=== PATIENT | male | born 1960 | race Caucasian/White ===

== ENCOUNTER → 2023-04-09 07:44 | Outpatient (REF) | payer BC, SELFPAY | LOC: HWRAD 07:44 | PROVIDERS: ATTENDING PHYSICIAN Radiology Diagnostic Radiology; FAMILY PHYSICIAN Family Medicine | DX: I87.1 Compression of vein (principal) | CPT/HCPCS: 74178; Q9967 ==

== ENCOUNTER → 2024-03-24 07:10 | Outpatient (REF) | payer SELFPAY | LOC: RAD 07:10 | PROVIDERS: ATTENDING PHYSICIAN Family Medicine | DX: R74.01 Elevation of levels of liver transaminase levels (principal) | CPT/HCPCS: 70450; 72125 ==

== ENCOUNTER → 2024-03-24 07:39 | Outpatient (REF) | payer OTHER, MEDICARE, SELFPAY | LOC: RAD 07:39 | PROVIDERS: ATTENDING PHYSICIAN Family Medicine; FAMILY PHYSICIAN Family Medicine | DX: R74.01 Elevation of levels of liver transaminase levels (principal) | CPT/HCPCS: 76700 ==

== ENCOUNTER 2024-10-23 04:10 | Emergency (ER) | payer MEDICARE, OTHER, SELFPAY ==
[2024-10-23 04:15] VITALS: BP 125/88
[2024-10-23 05:01] VITALS: BP 135/89
[2024-10-23 05:19] VITALS: BMI 23.3
[2024-10-23 05:19] LABS: Hematocrit 46.3 % (39.0-52.0); Hemoglobin 16.1 g/dL (13.0-18.0); Mean Corp Hgb Conc. 34.8 g/dL (33.0-37.0); Mean Corpuscular Volume 89.2 fL (80.0-94.0); Nucleated Red Blood Cells % 0 % (-); Platelet Count 303 10^3/uL (130-400); Red Cell Dist. Width 13.7 % (11.5-14.5)
[2024-10-23 05:40] LABS: ALT (SGPT) 33 U/L (0-50); AST (SGOT) 32 U/L (17-59); Albumin 4.8 g/dl (3.5-5.0); Alkaline Phosphatase 56 U/L (38-126); Blood Urea Nitrogen 25 mg/dl (9-20); Calcium 9.6 mg/dl (8.4-10.2); Carbon Dioxide 31 mmol/L (22-30); Chloride 102 mmol/L (98-107); Glucose 115 mg/dl (70-99); Potassium 4.2 mmol/L (3.5-5.1); Sodium 139 mmol/L (135-145); Total Protein 7.1 g/dl (6.3-8.2); eGFR > 60.00
[2024-10-23 05:51] LABS: Troponin I < 0.012 ng/ml
[2024-10-23 06:00] VITALS: BP 128/85
--- NOTE | 2024-10-23 06:55 | ED.GENMED ---
History of Present Illness
<Dustin Paulino MD, Resident - Last Filed: 10/23/24 08:47>
General
Chief Complaint: Chest Pain
Source: patient
Time Seen by Provider: 10/23/24 06:16
History of Present Illness
History of Present Illness:
Mr. Grant is a 64-year-old male with past medical history of spontaneous pneumothorax in 2021 secondary to COVID, depression, right leg DVT, and prostatic hypertrophy who presents with 3 to 4 hours of chest 'spasms.' He states that he woke up
around 3 AM and had trouble sleeping, so he took a melatonin with water that he feels contributed to the onset of his symptoms. He describes his pain as a coming and going spasm that starts in his sternum and radiates to the left upper chest and
shoulder, now a little bit around his neck. He denies shortness of breath, palpitations, nausea/vomiting, dizziness, recent infections, and travel. He does endorse a history of 'GI issues' for which he occasionally takes antiacid. He has also
seen a medical data analyst here in the past to rule out cardiac causes. He states that he has a bad habit of eating and laying down, and was doing this last night with a bag of popcorn prior to falling asleep.
Past History
<Dustin Paulino MD, Resident - Last Filed: 10/23/24 08:47>
Past History
ED Past Medical History: Other (Is treated H. pylori, prostatic hypertrophy, prostatis, spontaneous pneumothorax in 2021 secondary to COVID)
ED Past Surgical History: Orthopedic and Other (History of parathyroid surgery, and right knee surgery)
Social History
Tobacco: Non-smoker
Alcohol: None
Drug: None
Personal:
Living: with family
Employment: Employed
Review of Systems
<Dustin Paulino MD, Resident - Last Filed: 10/23/24 08:47>
Review of Systems
Allergies reviewed?: No
Constitutional: Reports no symptoms
Cardiac: Reports chest pain (Starts in the sternum and radiates to the left shoulder)
Phy Exam
<Dustin Paulino MD, Resident - Last Filed: 10/23/24 08:47>
General Physical Exam
General Presentation: well appearing and mild distress (Appears anxious)
General age: appears stated age
General Skin: warm and dry
General Habitus: normal
General Mental: alert
General Hydration: appears well hydrated
ENT Exam
ENT Exam: EOMI
Pulmonary Exam
Pulmonary Exam: lungs clear, no respiratory distress and chest non tender
Gastrointestinal Exam
Gastrointestinal Exam: normal bowel sounds, non tender, soft and non distended
Skin Exam
Skin Exam: normal color
Psychiatric Exam
Psychiatric Exam: anxious
Scores
<Dustin Paulino MD, Resident - Last Filed: 10/23/24 08:47>
Heart Score for Chest Pain Patients
STEMI patient?: No
History: Slightly or Non-Suspicious
ECG: Normal
Age: >/= 65 years
Risk Factors: 1 or 2 Risk Factors
Troponin: >1 - <3 x Normal Limit
Heart Score for Chest Pain Patients: 4
Heart Score Risk: 20.3% MACE over next 6 weeks
<Jerry Kwong, DO - Last Filed: 10/23/24 13:49>
Heart Score for Chest Pain Patients
Heart Score for Chest Pain Patients: 4
Heart Score Risk: 20.3% MACE over next 6 weeks
Course
<Dustin Paulino MD, Resident - Last Filed: 10/23/24 08:47>
Orders/Labs/Results
Orders:
Orders
10/23/24 04:10
Electrocardiogram (*1) Urgent
Reason for Study: Chest Pain
EKG- Treatment ONCE
10/23/24 05:00
Cardiac Monitoring- Treatment ONCE
IV Insert/Care/Rem.- Treatment PRN
CR Chest - 2 Views Urgent
Comment:
Reason For Exam: respiratory distress
O2 Therapy [RESP] Urgent
Titrate/Wean O2 to maintain O2 sat greater than (%): 93
Special Instructions: TO MAINTAIN CONTINUOUS O2 SATS >/= 93%
Pulse Ox/cont/shift [RESP] Urgent
Quantity: 1
Special Instructions: continuous pulse ox
10/23/24 05:01
Complete Blood Count/With Diff Urgent
Comprehensive Metabolic Panel Urgent
Lipase Urgent
Comment: ADD ON
Troponin I Urgent
10/23/24 07:11
Mag Hydrox/Al Hydrox/Simeth [Maalox] 30 ml PO NOW STA
10/23/24 07:12
Add On- LAB Urgent
Tests Added?: lipase
Pantoprazole [Protonix IV] 40 mg IV NOW STA
10/23/24 07:47
Troponin I Urgent
Abnormal Lab Results
10/23/24
05:01
Carbon Dioxide 31 H mmol/L
(22-30)
BUN 25 H mg/dl
(9-20)
Glucose 115 H mg/dl
(70-99)
10/23/24 05:01
10/23/24 05:01
Vital Signs
Initial and Last Documented VS:
Initial Vital Signs
Temp Pulse Resp BP Pulse Ox
98.2 F 85 18 125/88 99
10/23/24 04:15 10/23/24 04:15 10/23/24 04:15 10/23/24 04:15 10/23/24 04:15
Last Documented Vital Signs
Temp Pulse Resp BP Pulse Ox
98.2 F 76 19 128/85 97
10/23/24 04:15 10/23/24 08:00 10/23/24 08:00 10/23/24 06:00 10/23/24 08:00
<Jerry Kwong, DO - Last Filed: 10/23/24 13:49>
Orders/Labs/Results
Orders:
Orders
10/23/24 04:10
Electrocardiogram (*1) Urgent
Reason for Study: Chest Pain
EKG- Treatment ONCE
10/23/24 05:00
Cardiac Monitoring- Treatment ONCE
IV Insert/Care/Rem.- Treatment PRN
CR Chest - 2 Views Urgent
Comment:
Reason For Exam: respiratory distress
O2 Therapy [RESP] Urgent
Titrate/Wean O2 to maintain O2 sat greater than (%): 93
Special Instructions: TO MAINTAIN CONTINUOUS O2 SATS >/= 93%
Pulse Ox/cont/shift [RESP] Urgent
Quantity: 1
Special Instructions: continuous pulse ox
10/23/24 05:01
Complete Blood Count/With Diff Urgent
Comprehensive Metabolic Panel Urgent
Lipase Urgent
Comment: ADD ON
Troponin I Urgent
10/23/24 07:11
Mag Hydrox/Al Hydrox/Simeth [Maalox] 30 ml PO NOW STA
10/23/24 07:12
Add On- LAB Urgent
Tests Added?: lipase
Pantoprazole [Protonix IV] 40 mg IV NOW STA
10/23/24 07:47
Troponin I Urgent
Abnormal Lab Results
10/23/24
05:01
Carbon Dioxide 31 H mmol/L
(22-30)
BUN 25 H mg/dl
(9-20)
Glucose 115 H mg/dl
(70-99)
10/23/24 05:01
10/23/24 05:01
Vital Signs
Initial and Last Documented VS:
Initial Vital Signs
Temp Pulse Resp BP Pulse Ox
98.2 F 85 18 125/88 99
10/23/24 04:15 10/23/24 04:15 10/23/24 04:15 10/23/24 04:15 10/23/24 04:15
Last Documented Vital Signs
Temp Pulse Resp BP Pulse Ox
98.2 F 76 19 128/85 97
10/23/24 04:15 10/23/24 08:00 10/23/24 08:00 10/23/24 06:00 10/23/24 08:00
<Dustin Paulino MD, Resident - Last Filed: 10/23/24 08:47>
MDM/Problems Addressed
Differential Diagnosis Includes:
GA
PE
Recurrence of spontaneous pneumothorax
Costochondritis
GERD
Esophageal spasm
Pancreatitis
MDM/Problems Addressed:
Mr. Grant is a 64-year-old male with past medical history of spontaneous pneumothorax in 2021 secondary to COVID, depression, right leg DVT, and prostatic hypertrophy who presents with 3 to 4 hours of chest 'spasms.'
#Chest pain/spasm
- CBC W/differential and CMP WNL
- Trend troponin: 5 AM <0.012, 8 AM <0.012
- CXR unremarkable
- EKG normal sinus rhythm and similar to previous
- Lipase 102, WNL
- Maalox and IV Protonix
#History of DVT
- Continue Eliquis 5 mg p.o. twice daily
<Dustin Paulino MD, Resident - Last Filed: 10/23/24 08:47>
*Pulse Oximetry
SaO2: 100
Oxygen Mode of Delivery: Room air
Patient hypoxic: no
*Critical Care Note
Total Time (30-74mins, 75-104mins- exclusive of procedures): Not Applicable
<Dustin Paulino MD, Resident - Last Filed: 10/23/24 08:47>
Update Note
Update Note:
All ED workup was unremarkable and patient was deemed medically stable for discharge.
ED Attending Note
<Dustin Paulino MD, Resident - Last Filed: 10/23/24 08:47>
-
Portions of this chart may have been created with voice recognition software.� Occasional wrong word or��sound alike� substitutions may have occurred due to the inherent limitations of voice recognition software.
<Jerry Kwong, DO - Last Filed: 10/23/24 13:49>
ED Attending Note
Patient seen and examined by attending physician: Yes
I performed a history and physical exam of patient and discussed management with resident, I reviewed resident's note and agree with documented findings and plan of care.: Yes
ED Attending Note:
I reviewed and agree with history and treatment plan by Dustin Paulino MD. My exam revealed
Physical Exam
General: no apparent distress, not acutely ill
Neck: supple. no meningeal signs. normal posterior pharynx
Heart: s1/s2 regular rate and rhythm, no murmur. equal radial
pulses.
HEENT: Pupils equal round reactive to light, EOMI
Lungs: no acute respiratory distress. clear bilaterally
Abdomen: normal bowel sounds. not tender. no CVAT
Neuro: alert and oriented. no focal neurological deficits cranial nerves II through XII intact
Skin: no rash
Psychiatric: well kept. interactive and cooperative
Extremities: no edema. no calf tenderness. negative homans. good distal pulses
64-year-old male with chest pain, doubt cardiac cause. Suspect reflux. Do not suspect ACS or PE. Stable for discharge follow-up with primary care.
Discharge Plan
Departure
Patient Disposition: Home (Routine Discharge)
Date of Disposition: 10/23/24
Time of Disposition: 08:42
Patient with high blood pressure during this ER visit?: No
Discharge Problem:
Chest pain due to GERD
Prescriptions:
No Action
testosterone [AndroGel] 1.62 % (20.25 mg/1.25 gram) Gel In Packet
1 packet topical DAILY
Eliquis 5 mg Tablet
5 mg PO BID
Referrals:
Victorino Murillo DO [Family Provider, Family Practice]
Interventions
Interventions:
*Risk Screen - Suicide Last Done: 10/23/24 04:15
*General Assessment Last Done: 10/23/24 04:15
*Neglect/Abuse Screening Last Done: 10/23/24 04:15
*ED- Fall Risk Assessment Last Done: 10/23/24 05:58
*ED COVID-19 Vaccine History Last Done: 10/23/24 05:58
*Nursing Disposition Last Done: 10/23/24 09:08
ED- Cardiac Assessment Last Done: 10/23/24 05:54
Discharge Date and Time
Discharge Date/Time: 10/23/24 09:08
Print Language: GEORGIAN
[2024-10-23] MEDS: MAALOX 30 ML PO (07:45)
[2024-10-23] MEDS: PROTONIX IV 40 MG IV (07:45)
[2024-10-23 08:25] LABS: Troponin I < 0.012 ng/ml
[2024-10-23 08:32] LABS: Lipase 102 U/L (23-300)
== END 2024-10-23 09:08 | disposition home or self-care (01) ==
LOC: EMR 04:10
PROVIDERS: Student in an Organized Health Care Education/Training Program; EMERGENCY PHYSICIAN Emergency Medicine; FAMILY PHYSICIAN Family Medicine
DX: R07.89 Other chest pain (principal); K21.9 Gastro-esophageal reflux disease without esophagitis; F32.A Depression, unspecified; Z86.718 Personal history of other venous thrombosis and embolism; Z79.01 Long term (current) use of anticoagulants
CPT/HCPCS: 99285; 96374; 71046; 80053; 83690; 84484; 85025; 93005

== ENCOUNTER → 2024-10-30 10:44 | Outpatient (REF) | payer MEDICARE, OTHER, SELFPAY | LOC: RCS 10:44 | PROVIDERS: ATTENDING PHYSICIAN Internal Medicine Cardiovascular Disease; FAMILY PHYSICIAN Family Medicine | DX: R07.89 Other chest pain (principal) | CPT/HCPCS: 93017; 93225; 93226 ==

== ENCOUNTER → 2024-11-06 06:43 | Emergency (ER) | payer MEDICARE, OTHER, SELFPAY ==
[2024-11-06 06:59] VITALS: BP 157/104
[2024-11-06 07:14] VITALS: BMI 25.0
--- NOTE | 2024-11-06 07:17 | ED.GENMED ---
History of Present Illness
General
Chief Complaint: Chest Pain
Source: patient
Exam Limitations: none
Time Seen by Provider: 11/06/24 07:05
Nursing documentation reviewed up to this point in time: agreed with
History of Present Illness
History of Present Illness:
Patient presents to ED secondary to sudden onset of chest pain while he was at the gym working out, approximately at 5:30 AM. Patient states that he was working on back exercise, when his chest pain started. Chest pain described as tightness, 4/10
on pain scale, left-sided, nonradiating, without any alleviating or exacerbate this. Denies associated shortness of breath, nausea, or diaphoresis. Patient was evaluated in ED for similar chest pain 2 weeks ago, when his chest tightness was more
central in origin. Patient subsequent was seen by cardiology as an outpatient, where he also received stress test. During the end of stress test, patient states that he developed SVT, which resolved spontaneously. Patient was started on
beta-aden afterwards. Since then, patient has not had recurrent chest pain, until this morning. Denies drinking alcohol or smoking. Denies recent travel or surgery. Denies leg pain or swelling. Denies back pain. Patient does take Eliquis
daily secondary to blood clot.
Past History
Past History
ED Past Medical History: Other (Is treated H. pylori, prostatic hypertrophy, prostatis, spontaneous pneumothorax in 2021 secondary to COVID)
ED Past Surgical History: Orthopedic and Other (History of parathyroid surgery, and right knee surgery)
Social History
Tobacco: Non-smoker
Alcohol: None
Drug: None
Personal:
Living: with family
Employment: Employed
Review of Systems
Review of Systems
Allergies reviewed?: Yes
All Other Systems: ROS reviewed and negative except as documented in HPI and ROS
Constitutional: Reports no symptoms
Respiratory: Reports no symptoms
Cardiac: Reports chest pain
ABD/GI: Reports no symptoms
Musculoskeletal: Reports no symptoms
Skin: Reports no symptoms
Neurological: Reports no symptoms
Phy Exam
Physical Exam
Physical Exam:
Physical Exam
General: no apparent distress, not acutely ill. afebrile
Head: nc/at. eomi
Neck: supple. no meningeal signs. normal posterior pharynx
Heart: s1/s2 regular rate and rhythm, no murmur.
Lungs: no acute respiratory distress. clear bilaterally. chest wall nontender to palpation
Abdomen: normal bowel sounds. not tender.
Neuro: alert and oriented x 3. no focal neurological deficits
Skin: no rash
Psychiatric: well kept. interactive and cooperative
Extremities: no edema. no calf tenderness.
Scores
Heart Score for Chest Pain Patients
STEMI patient?: No
History: Slightly or Non-Suspicious
ECG: Normal
Age: >/= 65 years
Risk Factors: 1 or 2 Risk Factors
Troponin: </= Normal Limit
Heart Score for Chest Pain Patients: 3
Heart Score Risk: 2.5% MACE over next 6 weeks
Course
Orders/Labs/Results
Orders:
Orders
11/06/24 06:45
EKG [Electrocardiogram (*1)] Urgent
Reason for Study: Chest Pain
EKG- Treatment ONCE
11/06/24 07:19
Aspirin Chewable [Low Strength Aspirin] 324 mg PO NOW STA
Nitroglycerin Sublingual [Nitrostat (Sublingual)] 0.4 mg SL NOW STA
11/06/24 07:29
Complete Blood Count/With Diff Urgent
Comprehensive Metabolic Panel Urgent
Magnesium Urgent
Troponin I Urgent
11/06/24 09:21
Echo 2D MMode Color/Doppler Routine
Reason for Study: Chest pain
11/06/24 09:43
CXR2 [CR Chest - 2 Views ] Routine
Comment:
Reason For Exam: Chest pain
11/06/24 10:23
Troponin I Routine
Abnormal Lab Results
11/06/24
07:29
MCH 31.3 H pg
(27.0-31.0)
Absolute Lymphs (auto) 1.1 L 10^3/uL
(1.2-3.4)
Neutrophils % 75.9 H %
(42.2-75.2)
Lymphocytes % 14.0 L %
(20.5-51.1)
Chloride 108 H mmol/L
(98-107)
Glucose 113 H mg/dl
(70-99)
11/06/24 07:29
11/06/24 07:29
Vital Signs
Initial and Last Documented VS:
Initial Vital Signs
Temp Pulse Resp BP Pulse Ox
97.7 F 79 16 157/104 99
11/06/24 06:59 11/06/24 06:59 11/06/24 06:59 11/06/24 06:59 11/06/24 06:59
Last Documented Vital Signs
Temp Pulse Resp BP Pulse Ox
97.7 F 68 19 137/79 98
11/06/24 06:59 11/06/24 09:15 11/06/24 09:15 11/06/24 09:00 11/06/24 09:15
MDM/Problems Addressed
MDM/Problems Addressed:
Patient given nitroglycerin sublingual, without significant change in symptoms.
Patient evaluated at bedside by Dr. Jerome, who ordered repeat troponin along with echocardiogram.
Per cardiology, patient safe to be discharged home. His medication will be switched from metoprolol to Cardizem, along with an outpatient stress echocardiogram, which is arranged by cardiology prior to discharge. Patient otherwise is afebrile,
hemodynamically stable, and appears comfortable at time of discharge.
*Pulse Oximetry
SaO2: 99
Oxygen Mode of Delivery: Room air
Patient hypoxic: no
*EKG
Interpreted by ED Provider?: Yes
EKG Intrepretation Date: 11/06/24
Heart Rate: 75
Rate: normal
Rhythm: sinus
[place]: normal axis
Interval: normal interval
*Critical Care Note
Total Time (30-74mins, 75-104mins- exclusive of procedures): Not Applicable
ED Attending Note
-
Portions of this chart may have been created with voice recognition software.� Occasional wrong word or��sound alike� substitutions may have occurred due to the inherent limitations of voice recognition software.
Discharge Plan
Departure
Patient Disposition: Home (Routine Discharge)
Date of Disposition: 11/06/24
Time of Disposition: 12:27
Patient with high blood pressure during this ER visit?: Yes
Condition: Good
Discharge Problem:
Chest pain
Instructions: Chest pain (DC)
Prescriptions:
New
diltiazem HCl [Cardizem CD] 180 mg capsule,extended release 24hr
180 mg PO DAILY Qty: 30 0RF
No Action
testosterone [AndroGel] 1.62 % (20.25 mg/1.25 gram) Gel In Packet
1 packet topical DAILY
Eliquis 5 mg Tablet
5 mg PO BID
Referrals:
Chetan Pittman MD [Active, Cardiology]
Victorino Murillo DO [Family Provider, Family Practice]
Activity Restrictions/Additional Instructions:
As discussed, please follow-up with your senior project engineer for further evaluation and treatment. In the meantime, please stop taking metoprolol, but start taking prescribed Cardizem, which has been prescribed electronically to your pharmacy.
Interventions
Interventions:
*Risk Screen - Suicide Last Done: 11/06/24 06:59
*General Assessment Last Done: 11/06/24 07:20
*Neglect/Abuse Screening Last Done: 11/06/24 06:59
*ED- Fall Risk Assessment Last Done: 11/06/24 07:20
ED- Cardiac Assessment Last Done: 11/06/24 07:58
Discharge Date and Time
Print Language: SERBIAN
[2024-11-06] MEDS: LOW STRENGTH ASPIRIN 324 MG PO (07:34)
[2024-11-06] MEDS: NITROSTAT (SUBLINGUAL) 0.4 MG SL ×2 (07:35→07:42)
[2024-11-06 07:40] VITALS: BP 141/78
[2024-11-06 07:44] LABS: Hematocrit 45.7 % (39.0-52.0); Hemoglobin 15.8 g/dL (13.0-18.0); Mean Corp Hgb Conc. 34.6 g/dL (33.0-37.0); Mean Corpuscular Volume 90.5 fL (80.0-94.0); Nucleated Red Blood Cells % 0 % (-); Platelet Count 292 10^3/uL (130-400); Red Cell Dist. Width 13.7 % (11.5-14.5)
[2024-11-06 07:46] VITALS: BP 129/85
[2024-11-06 07:57] VITALS: BP 132/77
[2024-11-06 08:00] VITALS: BP 141/77
[2024-11-06 08:04] LABS: ALT (SGPT) 23 U/L (0-50); AST (SGOT) 25 U/L (17-59); Albumin 4.2 g/dl (3.5-5.0); Alkaline Phosphatase 57 U/L (38-126); Blood Urea Nitrogen 19 mg/dl (9-20); Calcium 9.4 mg/dl (8.4-10.2); Carbon Dioxide 29 mmol/L (22-30); Chloride 108 mmol/L (98-107); Estimated Creatinine Clearance 94 ml/min; Glucose 113 mg/dl (70-99); Magnesium 2.1 mg/dl (1.6-2.3); Potassium 4.9 mmol/L (3.5-5.1); Sodium 140 mmol/L (135-145); Total Protein 6.4 g/dl (6.3-8.2); eGFR > 60.00
[2024-11-06 08:15] LABS: Troponin I < 0.012 ng/ml
[2024-11-06 09:00] VITALS: BP 137/79
--- NOTE | 2024-11-06 09:24 | CON.CAR ---
Addendum entered and electronically signed by Lebron Jerome MD 11/06/24 12:18:
I saw and evaluated the patient, and I provided the substantive portion of the medical decision making.
I reviewed and agree with the note by Yovana Prieto and it accurately reflects our care.
I personally performed the medical decision making of the this encounter and my assessment and plan is below:
64 yo male who developed chest pain, sharp shooting, to his shoulder and left side of his chest while he was performing back exercises. This continued throughout the early AM and he presented to the ED. He has contineud CP and his troponin x2 is
negative and echo was unremarkable. He also had an abnormal ETT with SVT developing, but no ECG changes concerning for ischemia.
We discussed an invasive vs further stress testing for his CP. We decided upon an exercise nuc for further eval. We will do this with diltiazem given his SVT occurred during the prior. He has outpt EP eval on 11/18 for his SVT.
- stop metop start dilt 180 CD
- outpt nuc exercise stress
Original Note:
Consultation
Consultation Request
Date/Time Consultation Requested: 11/06/2024 08:00
Date/Time Consultation Performed: 11/06/2024 09:00
Requesting Provider: Dr. Aguiar
Performing Provider: THOMAS Uribe for Dr. Aguiar
Reason for Consultation: Chest pain
Medical History
-
Chief Complaint: Chest pain
History of Present Illness:
Jamey Grant is a 64-year-old male (known to Dr. Pittman, his primary weighing station operator), with hypercholesterolemia, paroxysmal supraventricular tachycardia, prior DVT (on apixaban), and pneumothorax presented to the emergency department with chest
pain. He had a prior ER visit with chest pain which prompted outpatient evaluation by Dr. Pittman. An exercise stress test was ordered. He had excellent exercise tolerance which was well above average and completed 11.5 METS into stage IV for
10:26. At rest he had 1/10 epigastric discomfort, at peak heart rate he went into SVT at 210 bpm. At this rate he had 3/10 chest discomfort. This was a low risk stress test. He was started on metoprolol succinate 25 mg every evening. He has an
EP evaluation on 11/18/2024. He presents back today with chest pain. [place]. He felt 'uneasy' and lightheaded. Last evening he felt well. He woke up this morning and decided to go to the gym. While
doing back extensions he developed left sided chest discomfort and left shoulder discomfort. He is still having this discomfort. It is 3/10 in severity. At its worst it was 5/10 in severity. He has a troponin less than 0.012 and an EKG that does
not demonstrate acute ischemia.
Past Medical History
Past Medical History: Arrhythmias (PSVT), Hypercholesterolemia and Other (Pneumothorax, DVT)
Past Surgical History: Orthopedic and Urological (Partial prostatectomy)
Social History
Tobacco: Non-Smoker
Drug: None
Family History
Family History: Reviewed & Not Pertinent (No premature CAD nor SCD.)
Allergies / Home Medications
Allergy/AdvReac Type Severity Reaction Status Date / Time
No Known Allergies Allergy Verified 11/06/24 06:58
�Medication �Instructions �Recorded �Confirmed �Type
apixaban 5 mg tablet (Eliquis) 5 mg PO BID 10/23/24 10/23/24 History
testosterone 1.62 % (20.25 mg/1.25 1 packet topical DAILY 10/23/24 10/23/24 History
gram) transdermal gel packet
(AndroGel)
Review of Systems
-
History Source: Patient
All other systems: Negative unless noted
Constitutional: No Symptoms
EENT: No Symptoms
Respiratory: No Symptoms
Cardiac: Chest Pain
Abdomen/GI: No Symptoms
: No Symptoms
Musculoskeletal: No Symptoms
Skin: No Symptoms
Neurological: No Symptoms
Endocrine: No Symptoms
Hematologic/Lymphatic: No Symptoms
Physical Exam
Vital Signs
Temp Pulse Resp BP Pulse Ox
97.7 F 78 19 137/79 100
11/06/24 06:59 11/06/24 09:00 11/06/24 09:00 11/06/24 09:00 11/06/24 09:00
Lab Results
11/06/24 07:29
11/06/24 07:29
Troponin I < 0.012 ng/ml 11/06/24 07:29
Physical Exam
General: Well Developed, Well Nourished, No Apparent Distress and Comfortable
HEENT: Normocephalic, Anicteric and Moist Mucous Membranes
Respiratory: Clear and Non Labored Respirations
Cardiac: S1/S2 and Regular Rhythm
Breast: Deferred by me
GI: Soft, Non Tender, Non Distended and Normal Bowel Sounds
Rectal: Deferred by Provider
Genito-urinary: No Costovertebral Tender
Musculoskeletal: No Clubbing, No Cyanosis and No Edema
Skin: Warm and Dry
Neuro: AO x 3
Hematologic/Lymphatic: No Lymphadenopathy
Psych: Calm
Impression / Plan
-
I/P: 64M with hypercholesterolemia, paroxysmal supraventricular tachycardia, prior DVT (on apixaban), and pneumothorax presented to the emergency department with chest pain
Primary weighing station operator: Dr. Pittman
Chest pain
- Still having 3/10 shoulder pain.
- EKG without acute ischemia, troponin <0.012
- Follow-up troponin
- Echocardiogram
- CXR given prior pneumothorax
PSVT
- Stop metoprolol succinate 25 mg, transition to Cardizem CD 180 mg daily
- EP evaluation as scheduled later this month
Hypercholesterolemia
- Most recent LDL 120 on Lovaza
Prior DVT, on apixaban 5 mg twice daily
History of partial prostatectomy
Pneumothorax, in the setting of COVID-19
Data Reviewed
-
EKG: Report Reviewed by me
Medical Tests (Nuc Med, Echo etc): Report Reviewed by me
Labs: Labs Reviewed by me
Old Records: Reviewed
[2024-11-06 11:03] LABS: Troponin I < 0.012 ng/ml
== END | disposition home or self-care (01) ==
LOC: EMR 06:43
PROVIDERS: Nurse Practitioner Gerontology; EMERGENCY PHYSICIAN Emergency Medicine; FAMILY PHYSICIAN Family Medicine
DX: R07.89 Other chest pain (principal); E78.00 Pure hypercholesterolemia, unspecified; I08.0 Rheumatic disorders of both mitral and aortic valves; I47.10 Supraventricular tachycardia, unspecified; I48.91 Unspecified atrial fibrillation; N40.0 Benign prostatic hyperplasia without lower urinary tract symptoms; Z79.01 Long term (current) use of anticoagulants; Z79.899 Other long term (current) drug therapy; Z86.19 Personal history of other infectious and parasitic diseases; Z86.718 Personal history of other venous thrombosis and embolism; Z90.79 Acquired absence of other genital organ(s)
CPT/HCPCS: 99283; 71046; 80053; 83735; 84484; 85025; 93005; 93306

== ENCOUNTER → 2024-11-10 07:44 | Outpatient (REF) | payer MEDICARE, OTHER, SELFPAY | LOC: HWRCS 07:44 | PROVIDERS: ATTENDING PHYSICIAN Internal Medicine Cardiovascular Disease; FAMILY PHYSICIAN Family Medicine | DX: R07.9 Chest pain, unspecified (principal); R94.39 Abnormal result of other cardiovascular function study | CPT/HCPCS: 78452; 93017; A9500; J2785 ==

== ENCOUNTER 2024-11-27 05:56 | Day surgery (SDC) | payer MEDICARE, OTHER, SELFPAY ==
[2024-11-27] VITALS (24 sets, daily range): BP systolic 115–154; BP diastolic 72–99; BMI 24.5
[2024-11-27] MEDS: NSS 500 IV (07:45)
--- NOTE | 2024-11-27 11:00 | ITS.CL.ABL ---
Validation Specialist - Ablation
Ablation
Procedure Report:
Supra-Ventricular Tachycardia Ablation:
Mr. 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
presented today to the EP lab for electrophysiology (EP) study of the heart and possible ablation of the SVT.
Date of Procedure:
11/27/2024
�
Indications: Supra-Ventricular Tachycardia (SVT)
�
Pre-Operative Diagnosis: Supra-Ventricular Tachycardia (SVT)
�
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
�
Procedure Performed: EP study and SVT ablation x2
�
Performing Physician:
Dereck Zarate MD
��
Anesthesia:
See anesthesia records
�
Detailed Description of the Procedure:
Written informed consent was obtained from the patient after a full explanation of the risks and benefits of the procedure including the risks of sedation and anesthesia. The patient was brought to the electrophysiology laboratory in stable
condition in fasting state. Continuous electrocardiographic and hemodynamic monitoring was initiated.
The initial rhythm was normal sinus.
The procedure site was meticulously prepared with surgical scrub and allowed to dry with no pooling. Sterile draping was applied to cover the procedure site. The image intensifier was draped with sterile bag and positioned over the patient.
Sheath and Catheter Placement:
After infusion of local anesthetic, vascular access was obtained under ultrasound guidance and sheaths were placed over guide wire as detailed below.
�
Sheaths:
- � � � 6 Fr sheath in right femoral vein
- � � � 7 Fr sheath in right femoral vein
- � � � 6 Fr that was later upgraded to Agilis sheath in right femoral vein
�
Catheters:
- � � � 6Fr - Meghann Quad-cath at RVa
- � � � 6Fr � QRD Quad - cath at HIS
- � � � Bard Decapolar catheter - at locations of CS
- � � � [employer]ense [place] force sensing irrigated 3.5 mm (Thermocool STSF) ablation catheter
�
�Following the sheaths placement, patient was given Heparin bolus and EP study was done.
Baseline intervals (milliseconds):
PP interval (baseline cycle length): 744
P wave duration:121
UT interval:202
QRS duration: 102
QT/QTc interval: 400/446
�
AH interval: 98
His duration: 18
HV interval: 55
Q onset to RVa: 0
��
Sinus Node Function:
HRA pacing showed adequate threshold. The sinus node functions are within acceptable normal range. There were frequent non-sustained atrial tachycardia noted with HRA pacing. The CS pacing was done to study the AV node.
�
Atrioventricular Medina Function:
Atrial stimulation with incremental pacing intervals was performed from the high right atrium (HRA) and right ventricular apex (RVa) and antegrade and retrograde atrioventricular (AV) block cycle lengths were determined. The antegrade AV Wenckebach
was noted at 380 msec.
�
Programmed atrial stimulation was performed with drive train of 600 msec followed by a single atrial extra-stimulus and the AV medina and the atrial ERPs were determined. The AV medina ERP was 600/380 msec and the atrial ERP was 220msec.
The Isuprel started and it improved the conduction and fast pathway ERP was 600/380 and slow pathway ERP was 600/360 ms.
There was normal decremental conduction noted through the AV node. The programmed stimuli showed a clear AH jump and echo beats.
Ventricular stimulation showed normal retrograde conduction via the AV node. The retrograde Wenckebach was 600msec.
�
Ventricular Function:
Single ventricular extrastimuli showed V conduction was normal with below 500 msec ventricular conduction. The ventricular electrical functions are within acceptable range.
Para-Hisian Pacing:
The HIS cahether were paced at high amplitude (20mA) and gradually amplitude decreased. The His capture was noted at high voltage and the VA conduction time was 186 msec. The lower voltage had RV capture and the VA time was 229 msec. This is deemed
medina response and no septal accessory pathway was noted.
�
Arrhythmia induction:
Arrhythmia induction was done with programmed stimulation as well as with burst pacing from CS and HRA.
Programmed stimulation did not induce any arrhythmia.� Decision was made to start Isuprel stimulation challenge.
Isuprel stimulation test:
With slow atrial conduction and delayed intervals noted, decision was made to use the Isuprel challenge. Isuprel infusion was initiated. The heart rate and blood pressure was monitored. Isuprel was gradually increased from 2 to 4 mcg/min. There was
adequate tachycardia response noted at 2 mcg/min dose and EP study and SVT induction was again attempted.
Isuprel was discontinued.
Atrioventricular medina reentry tachycardia:
Programmed atrial stimulation followed by atrial burst pacing around AV Wenckebach cycle length showed slow pathway conduction via the AV node with occasional echo beats without any sustained SVT. There was clear two pathway AV medina conduction
noted. There was EKG tracings consistent with AVNRT already present. This was deemed adequate to diagnose AVNRT.
Focal atrial tachycardia: Multiple different foci from the lewis.
Patient also has frequent atrial tachycardia noted. The tachycardia was short-lived and was not able to be drained. Due to the no sustained nature of the tachycardia, the mapping of the tachycardia was also difficult. The atrial tachycardia was of
variable cycle lengths going as much as 470 ms to as early as 220 ms.� The attempted mapping of the tachycardia shows that the tachycardia is coming from the lateral wall of the right atrium. The tachycardia terminated every time the catheter was
placed on the lateral wall making the mapping difficult.
SVT Arrhythmia Induction:
The tachycardia was easily inducible but short lived. The long sustained episode terminated before mapping could be done.
Electroanatomic 3D Mapping (EAM) and Ablation:
The HRA was removed and was upgraded to Agilis sheath for ablation catheter. EAM and radiofrequency ablation was performed using a ThermocoInvodo ST SF radiofrequency ablation catheter. 3D mapping was performed with Carto3 software. Cardiac anatomy as
established. His cloud was established. The triangle of Newell was marked with ablation catheter. There was a narrow area between the anterior border of the CS and the tricuspid annulus.
AVNRT ablation:
A slow pathway AVNRT ablation was pursued. Radiofrequency ablation lesions were applied using nonirrigated ablation catheter with 50 W at 60 degrees to the anatomic slow pathway area targeting spike and dome electrograms with > 1:7 A:V ratio just
below the His cloud. There were few Junctional beats with 1:1 VA relationship noted. There was no non-conducted beat.
Focal atrial tachycardia ablation:
Then the lateral wall of the right atrium was mapped.� Phrenic nerve capture areas identified.� The focal atrial tachycardia were all coming from the locations from the lateral wall.� Areas of the phrenic nerve capture were avoided and earliest
signals of the atrial focal atrial tachycardia were ablated.
The ablation to the target area induced the atrial tachycardia that dissipated to sinus with ablation.
Post Ablation EP study:
The post ablation EP study showed normal AV conduction. The UT was 194msec; QRS was 102msec; AH was 108msec with HV of 55msec. There was no sign of AV block noted.
There was decremental conduction noted via the AV node. There was AH jump still present but no ECHO beats were now noted after the ablation. There was no echo beats and despite aggressive measures. There was no inducible tachycardia.
Procedure End
Following the completion of the EP study, catheters were removed. The sheaths were removed and hemostasis achieved with Figure of 8 and manual compression.
Recommendations:
��������� Likely discharge home today.
��������� No change in home medications.
�
Estimated Blood loss:
<5 cc
�
Specimens Removed:
None.
�
Implants / Devices:
None
�
Urine output:
None
�
Packs / Drains/ Tubes:
None
�
Instrument / Sponge Count Correct:
Yes
�
Complications of the Procedure:
None
�
Condition of Patient at Time of Transfer:
Hemodynamically stable with no neurological or vascular compromise.
Summary:
Electrophysiology study with induction of atrioventricular medina re-entrant tachycardia (AVNRT) and successful modification of slow pathway; ablation of the focal atrial tachycardia at the lateral wall of the right atrium from right atrial lateral
wall foci
AT
AT #2 (too close to sinus)
Sinus map
Ablation lesions - AVNRT
[2024-11-27] MEDS: TYLENOL 650 MG PO ×2 (12:20→18:41)
--- NOTE | 2024-11-27 15:47 | PTCARENOTE ---
Pt bled while ambulating. Pressure held for 10 minutes and transported back via stretcher back to room. Bleeding stopped almost immediately. Cordelia Monzon notified.
--- NOTE | 2024-11-27 16:16 | PTCARENOTE ---
Pt was on bedrest for 30 minutes then we attempted sitting up again. Instant quarter size dot of blood noted on dressing. No echymosis or hematoma. Bleeding stopped immediately, dressing changed and has remained CDI. Pt laying flat once again. Cordelia
CHIEF GROWTH OFFICER notified. Pt will be watched overnight in IVU
[2024-11-27] MEDS: NSS IV (17:39)
--- NOTE | 2024-11-27 18:34 | PTCARENOTE ---
Pt received from recovery area post atrial tach ablation. Right femoral vein site with dry and intact dressing, no sign of bleeding or hematoma, pt maintaining a low level of activity staying in bed currently but sitting up. Plan to give eliquis
tonight confirmed with . Telemetry shows sinus rhythm with borderline first degree AV block. Pt given tylenol for 7/10 headache.
--- NOTE | 2024-11-27 22:57 | PTCARENOTE ---
Received pt @ change of shift. AAOx3, VSS-- NSR w/ AV block and occasional pauses on monitor. Right groin clean, dry, and intact. Discussed staying on bedrest for the evening to allow groin to heal post Eliquis dose in the AM. Pt c/o 09/03 headache--
turned all lights off, warm blanket for back of neck, and eye mask given. Discussed plan of care. Pt verbalizes understanding. Call horn within reach.
--- NOTE | 2024-11-27 23:00 | PTCARENOTE ---
Pt refused vitals @ 2300 when RN attempted. States 'just got comfortable.' RN educated on importance of vital signs.
[2024-11-28 04:30] VITALS: BP 121/82
[2024-11-28 05:22] LABS: Hematocrit 42.8 % (39.0-52.0); Hemoglobin 15.3 g/dL (13.0-18.0); Mean Corp Hgb Conc. 35.7 g/dL (33.0-37.0); Mean Corpuscular Volume 90.1 fL (80.0-94.0); Platelet Count 261 10^3/uL (130-400); Red Cell Dist. Width 13.5 % (11.5-14.5)
[2024-11-28 05:50] LABS: Blood Urea Nitrogen 15 mg/dl (9-20); Calcium 9.1 mg/dl (8.4-10.2); Carbon Dioxide 26 mmol/L (22-30); Chloride 109 mmol/L (98-107); Estimated Creatinine Clearance 99 ml/min; Glucose 89 mg/dl (70-99); Magnesium 1.9 mg/dl (1.6-2.3); Potassium 3.8 mmol/L (3.5-5.1); Sodium 139 mmol/L (135-145); eGFR > 60.00
[2024-11-28 06:52] VITALS: BP 128/87
--- NOTE | 2024-11-28 08:44 | W.PN.CD ---
Today's Communication / Plan
-
- Discharge home
Impression / Plan
-
Mr. 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
AVNRT and AT ablation on 11/27/24
SVT
- AVNRT and right atrial lateral wall AT noted - s/p ablation of both foci with radiofrequency.
- Groin had bleeding so observed overnight as he lives alone. No sign of bleeding or hematoma.
- Stable for discharge
DVT / Hyperviscosity syndrome
- On Eliquis 5 mg BID
Hx of BPH s/p prostatectomy
Physical Exam
Vital Signs/Labs
Vital Signs
Temp Pulse Resp BP Pulse Ox
98.5 F 83 16 128/87 98
11/28/24 06:54 11/28/24 07:45 11/28/24 06:54 11/28/24 06:52 11/28/24 06:54
11/27/24 11/28/24 11/29/24
06:59 06:59 06:59
Actual Weight 91.2 kg
11/28/24 04:39
11/28/24 04:39
Magnesium 1.9 mg/dl (1.6-2.3) 11/28/24 04:39
Physical Exam
Constitutional: No acute distress and Comfortable
EENT: Anicteric and Moist mucous membranes
Cardiovascular: Rhythm & rate is regular, Pedal edema is absent and JVD pressure is normal
Respiratory: Respiratory effort normal, Lungs clear to auscul. and Wheeze Absent
GI: Soft, Distention absent, Non tender and Normal bowel sounds
Neuro/Psych: Alert, Oriented and AO x 3
Other: Cath Site
Data Reviewed
-
Date of Service: November 28, 2024
Medical Decision Making: Reviewed Test Results, Test Interpretation and Review of Case with other Provider
EKG: Tracing Personally Visualized and interpreted
Echo: Report Reviewed by me
Labs: Labs Reviewed by me
Old Records: Reviewed
[2024-11-28] MEDS: PROTONIX 40 MG PO (08:48)
[2024-11-28] MEDS: NSS IV (08:49)
[2024-11-28 10:05] VITALS: BP 127/80
[2024-11-28 18:19] LABS: Hepatitis C Antibody Negative (Negative)
== END 2024-11-28 14:30 | disposition home or self-care (01) ==
LOC: CATH 05:56
PROVIDERS: Nurse Practitioner Adult Health; ATTENDING PHYSICIAN Internal Medicine Cardiovascular Disease; FAMILY PHYSICIAN Family Medicine; OTHER PHYSICIAN Internal Medicine Cardiovascular Disease
DX: I47.19 Other supraventricular tachycardia (principal); K21.9 Gastro-esophageal reflux disease without esophagitis; E78.00 Pure hypercholesterolemia, unspecified; R73.03 Prediabetes; Z79.01 Long term (current) use of anticoagulants; Z79.899 Other long term (current) drug therapy; Z86.718 Personal history of other venous thrombosis and embolism
CPT/HCPCS: C1730; 80048; 83735; 85027; 86803; 86850; 86900; 86901; 93005; 93623; 93653; C1732; C1766; C1894